=== PATIENT | male | born 1990 | race Caucasian/White ===

== ENCOUNTER 2020-10-07 21:09 | Emergency (ER) | payer SELFPAY ==
[~2020-10-07] VITALS: Ht 167.6 cm; Wt 68.0 kg
[2020-10-07 21:10] VITALS: BP 139/77
[2020-10-07 21:51] LABS: BILIRUBIN,URINE SMALL (NEG); CLARITY,URINE CLEAR; COLOR,URINE YELLOW; NITRITE,URINE NEGATIVE (NEG); PROTEIN,URINE NEGATIVE (NEG-TRACE)
[2020-10-07 22:00] LABS: BACTERIA,URINE 0 /HPF (0-FEW); RBC,URINE 0 /HPF (0-2); WBC,URINE 0 /HPF (0-4)
[2020-10-07] MEDS ORDERED: PRED20TA PO (22:06)
[2020-10-07] MEDS ORDERED: ORPH100T PO (22:06)
[2020-10-07] MEDS ORDERED: HYDR-2761 PO (22:06)
--- NOTE | 2020-10-07 22:06 | PHYS DOC ---
Past Medical History Past Medical History: No Pertinent History Past Surgical History: No Surgical History Smoking Status: Never Smoker Alcohol Use: Occasionally Drug Use: Amphetamine General Adult EDM: Chief Complaint: GROIN PAIN HPI: HPI: Patient is a 30-year-old male who presents to the emergency department with complaints of testicular and leg pain. He states the pain began at 8 AM this morning and awoke him from sleep. He describes the pain as a right-sided sharp testicular pain that radiates down the front of his right leg. He states the pain is worse when standing and certain positioning. He has taken Tylenol for the pain with no relief. He denies any testicular swelling or redness. He denies any urinary symptoms. He denies fecal or urinary incontinence. He denies any trauma or recent heavy lifting. He denies any penile discharge or sores. Review of Systems: Review of Systems: Constitutional: Denies fever or chills Eyes: Denies redness or eye pain HENT: Denies nasal congestion or sore throat Respiratory: Denies cough or shortness of breath Cardiovascular: Denies chest pain or palpitations GI: Denies abdominal pain, nausea, or vomiting : Admits testicle pain. Denies dysuria or hematuria Musculoskeletal: Denies back pain or joint pain Integument: Denies rash or skin lesions Neurologic: Denies headache, focal weakness or sensory changes Complete systems were reviewed and found to be within normal limits, except as documented in this note. Current Medications: Current Medications Medications (Trade) Dose Ordered Sig/Td Start Time Stop Time Status Last Admin Dose Admin Acetaminophen/ Hydrocodone Bitart (Lortab 5/325) 1 tab 1X ONCE 10/07/20 22:00 10/07/20 22:01 UNV Azithromycin (Zithromax) 1,000 mg 1X ONCE 10/07/20 22:00 10/07/20 22:01 UNV Ceftriaxone Sodium (Rocephin Im) 500 mg 1X ONCE 10/07/20 22:00 10/07/20 22:01 UNV Dexamethasone (Decadron) 10 mg 1X ONCE 10/07/20 22:00 10/07/20 22:01 UNV Orphenadrine Citrate (Norflex) 60 mg 1X ONCE 10/07/20 22:00 10/07/20 22:01 UNV Allergies: Allergies: Allergies Coded Allergies Type Severity Reaction Last Updated Verified No Known Drug Allergies 07/25/13 No Physical Exam: PE: Constitutional: Well developed, well nourished, no acute distress, non-toxic appearance HENT: Normocephalic, atraumatic Eyes: PERRL, EOMI, conjunctiva normal, no discharge Neck: Normal range of motion, no tenderness, supple Lungs & Thorax: No respiratory distress, equal chest rise and fall Abdomen: Soft, no tenderness Skin: Warm, dry, no erythema, no rash Back: No tenderness, no CVA tenderness Extremities: No tenderness, ROM intact, no edema Neurologic: Alert and oriented X 3, normal motor function, normal sensory function, no focal deficits noted Psychologic: Affect normal, judgment normal : Testicles nontender nonerythematous and nonswollen. Cremasteric reflex intact bilaterally. Normal testicular positioning. no penile discharge or lesions. Current Patient Data: Labs: Laboratory Tests Test 10/07/20 21:35 Urine Collection Type Void Urine Color Yellow Urine Clarity Clear Urine pH 6.0 (<5.0-8.0) Urine Specific [place] >=1.030 (1.000-1.030) Urine Protein Negative mg/dL (NEG-TRACE) Urine Glucose (UA) Negative mg/dL (NEG) Urine Ketones (Stick) Negative mg/dL (NEG) Urine Blood Negative (NEG) Urine Nitrite Negative (NEG) Urine Bilirubin Small (NEG) Urine Urobilinogen Dipstick 1.0 mg/dL (0.2 mg/dL) Urine Leukocyte Esterase Negative (NEG) Urine RBC 0 /HPF (0-2) Urine WBC 0 /HPF (0-4) Urine Squamous Epithelial Cells Occ /LPF Urine Bacteria 0 /HPF (0-FEW) Urine Mucus Mod /LPF EKG: EKG: [] Radiology/Procedures: Radiology/Procedures: [] Course & Med Decision Making: Course & Med Decision Making Patient is a 30-year-old male who presents with right groin pain that radiates down the leg. Testicular pathology unlikely due to normal examination of the testicles. Pain is likely neuropathic in nature. Plan to treat symptomatically with muscle relaxers, steroids, pain control and follow-up with physical medicine and rehabilitation. Patient also screened and treated for chlamydia and gonorrhea upon request. Pertinent Labs and Imaging studies reviewed. (See chart for details) Patient stable for discharge with outpatient follow-up with PCP. Discussed findings and plan with patient, who acknowledges understanding and agreement. Oz Disclaimer: Oz Disclaimer: This electronic medical record was generated, in whole or in part, using a voice recognition dictation system. Departure Departure Impression: Primary Impression: Sciatic leg pain Additional Impression: Concern about STD in male without diagnosis Disposition: 01 DC HOME SELF CARE/HOMELESS Condition: STABLE Referrals: KAREN WILL MD (PCP) JERSON CARMICHAEL MD Patient Instructions: Sciatica with Rehab-[facility], Sexually Transmitted Disease, [id number] Scripts Orphenadrine Citrate (ORPHENADRINE CITRATE) 100 Mg Tablet.er 1 TAB PO BID PRN for MUSCLE PAIN, #14 TAB Prov: YOKASTA PATEL DO 10/07/20 Hydrocodone Bit/Acetaminophen (HYDROCODONE-APAP 5-325 ) 1 Tab Tablet 0.5-1 TAB PO PRN Q6HRS PRN for PAIN, #14 TAB 0 Refills Prov: YOKASTA PATEL DO 10/07/20 Prednisone (PREDNISONE) 20 Mg Tablet 2 TAB PO DAILY, #8 TAB Start this prescription tomorrow, Thursday10/08/20 Prov: YOKASTA PATEL DO 10/07/20 YOKASTA PATEL DO Oct 07, 2020 22:06
[2020-10-07] MEDS ORDERED: ORPHENADRINE CITRATE 60 MG/2 ML VIAL. IM ONE (22:15)
[2020-10-07] MEDS ORDERED: DEXAMETHASONE 4 MG TABLET PO ONE (22:15)
[2020-10-07] MEDS ORDERED: HYDROcodone/APAP 5/325MG 1 TAB TABLET PO ONE (22:15)
[2020-10-07] MEDS ORDERED: AZITHROMYCIN 250 MG TABLET. PO ONE (22:15)
[2020-10-07] MEDS ORDERED: cefTRIAXone IM 500 MG VIAL. IM ONE (22:15)
== END 2020-10-07 22:35 | disposition home or self-care (01) ==
LOC: ER 21:09
DX: N50.811 Right testicular pain (principal); M79.604 Pain in right leg; F19.90 Other psychoactive substance use, unspecified, uncomplicated; Z20.2 Contact with and (suspected) exposure to infections with a predominantly sexual mode of transmission
CPT/HCPCS: 81001; 87491; 87591; 96372; 99284; J0696; J2360